=== PATIENT | female | born 1995 | race Two or more races ===

== ENCOUNTER 2016-06-05 14:10 | Emergency (ER) | payer OTHER ==
[2016-06-05] MEDS ORDERED: IOPAMIDOL 370 (76%) 100 ML VIAL IV ONE (14:11)
[2016-06-05 15:16] LABS: URINE BILIRUBIN NEGATIVE (NEGATIVE); URINE BLOOD NEGATIVE (NEGATIVE); URINE GLUCOSE (UA) NEGATIVE (NEGATIVE); URINE LEUKOCYTE ESTERASE 1+ (NEGATIVE); URINE NITRITE NEGATIVE (NEGATIVE); URINE PROTEIN NEGATIVE (NEGATIVE); URINE UROBILINOGEN NORMAL (0-1 mg/dl)
[2016-06-05 15:19] LABS: URINE APPEARANCE SL CLOUDY; URINE COLOR YELLOW
[2016-06-05 15:20] LABS: HCG,QUALITATIVE URINE NEGATIVE
[2016-06-05 15:31] LABS: URINE BACTERIA FEW
[2016-06-05 15:50] LABS: ABSOLUTE NEUTROPHIL COUNT 5.3 K/mm3 (1.8-7.7); BASO # 0.1 K/mm3 (0.0-0.2); BASO % 0.7 % (0.2-1.0); EOS # 0.2 (0.0-0.5); EOS % 2.5 % (0.9-2.9); HEMATOCRIT 34.5 % (37.0-47.0); HEMOGLOBIN 10.5 gm/l (12.0-16.0); IMM NEUT% 0.2 % (0-1); LYMPH # 2.4 (1.0-4.8); LYMPH % 27.8 % (15-45); MEAN CELL VOLUME 78.2 fl (81.0-99.0); MEAN CORPUSCULAR HEMOGLOBIN 23.8 pg (27.0-31.0); MEAN CORPUSCULAR HGB CONC 30.4 g/dl (33.0-37.0); MEAN PLATELET VOLUME 8.6 fl (7.4-10.4); MONO # 0.5 (0.0-0.8); MONO % 6.2 % (4-12); NEUT % 62.6 % (43-75); PLATELET COUNT 476 K/mm3 (130-400); RED CELL DISTRIBUTION WIDTH 15.8 % (11.5-14.5)
[2016-06-05 16:06] LABS: ALB/GLOB RATIO 1.4 (>1.0); ALBUMIN 4.2 gm/dL (3.5-5.7); CALCIUM 9.4 mg/dL (8.6-10.3)
--- NOTE | 2016-06-05 16:21 | CT ---
CT ABDOMEN AND PELVIS WITH CONTRAST HISTORY: Upper abdominal pain. TECHNIQUE: Following intravenous administration of 100cc of Isovue-370, contiguous axial images were acquired from the lung bases to the ischial tuberosities. Oral contrast was not administered. COMPARISON:None. FINDINGS: LUNG BASES: No gross airspace consolidation or pleural effusion. LIVER: No focal lesion. SPLEEN: No focal lesion. PANCREAS: No focal lesion. ADRENAL GLANDS: No mass effect. KIDNEYS: No focal lesion. No collecting system dilatation. GALLBLADDER: Present. BOWEL: Moderate fecal loading. Limited assessment of the distal colon due to decompression. No abnormal small bowel dilatation. APPENDIX: Not seen. PELVIC ORGANS: No gross mass effect moderate bladder wall thickening and decompression. FREE FLUID: No gross free fluid identified. ANTERIOR ABDOMINAL WALL: Minor soft tissue thickening along the umbilicus. ABDOMINOPELVIC LYMPH NODES: Increased number of mesenteric lymph nodes which are not grossly enlarged. ABDOMINAL AORTA: Normal caliber. OSSEOUS STRUCTURES: No grossly destructive lesions. IMPRESSION: 1. Increased number of mesenteric lymph nodes which could relate to mesenteric adenitis. Nonobstructive, noninflammatory appearance of bowel. 2. Evidence of bladder wall thickening, cystitis is possible. 3. Minor soft tissue thickening along the umbilicus, please correlate with exam findings to exclude minor cellulitic change. Results were electronically transmitted to the electronic medical record at 06/05/2016 at 1615 hours.
== END 2016-06-05 18:45 | disposition home or self-care (01) ==
LOC: ED 14:10
DX: R10.9 Unspecified abdominal pain (principal)
CPT/HCPCS: 83690; 81025; 85025; 80053; 81001; 74177; 99283; 99284; Q9967